=== PATIENT | male | born 1985 | race Caucasian/White ===

== ENCOUNTER 2017-06-17 17:02 | Emergency (ER) | payer BC ==
[2017-06-17 18:02] VITALS: RESP 18
--- NOTE | 2017-06-17 19:44 | C.PDOC ---
History Of Present Illness 31 year old male presents to the ER with a complaint of a left frontal headache that he describes as pain to the left orbital area since approximately 15:00 today, associated with photophobia. Patient reports taking aleve today with minimal relief. Denies nausea, fever, dizziness or URI symptoms. Time Seen by Provider: 06/17/17 19:16 Chief Complaint (Nursing): ENT Problem History Per: Patient History/Exam Limitations: no limitations Onset/Duration Of Symptoms: Hrs Current Symptoms Are (Timing): Still Present Preceeding Symptoms: None Associated Symptoms: Photophobia. denies: Blurred Vision, Nausea, Vomiting, Extremity Weakness Recent travel outside of the [place]: No Past Medical History Reviewed: Historical Data, Nursing Documentation, Vital Signs Vital Signs: Last Vital Signs Temp 97.6 F 06/17/17 19:48 Pulse 78 06/17/17 19:48 Resp 18 06/17/17 19:48 BP 117/65 06/17/17 19:48 Pulse Ox 100 06/17/17 21:36 - Medical History PMH: Hypothyroidism Family History: States: Unknown Family Hx - Social History Hx Alcohol Use: Yes Hx Substance Use: No - Immunization History Hx Tetanus Toxoid Vaccination: No Hx Influenza Vaccination: Yes (2017) Hx Pneumococcal Vaccination: No Review Of Systems Constitutional: Negative for: Fever, Chills Eyes: Positive for: Other (Photophobia). Negative for: Vision Change Gastrointestinal: Negative for: Nausea, Vomiting Neurological: Positive for: Headache Physical Exam - Physical Exam Appears: Non-toxic, No Acute Distress Skin: Normal Color, Warm, Dry Head: Atraumatic, Normacephalic, No Tenderness (Sinus), No Swelling Eye(s): bilateral: Normal Inspection, PERRL, EOMI Ear(s): Bilateral: Normal Oral Mucosa: Moist Neck: Normal, No Midline Cervical Tenderness, No Paracervical Tenderness, Supple Neurological/Psych: Oriented x3, Normal Speech, Other (No focal deficits) ED Course And Treatment O2 Sat by Pulse Oximetry: 100 (Room air) Pulse Ox Interpretation: Normal Progress Note: Tylenol administered. Patient reports improvement of pain, he is resting comofortably in no distress. Will discharge home with Rx, instructions to follow up with PMD, and given return precautions. Disposition Counseled Patient/Family Regarding: Diagnosis, Need For Followup, Rx Given - Disposition Referrals: Shaik Dickson MD [Staff Provider] - Disposition: HOME/ ROUTINE Disposition Time: 19:42 Condition: STABLE Additional Instructions: Please follow up with PMD Take meds as directed Return to ER if worse Prescriptions: Acetaminophen/Butalbital/Caf [Fioricet] 1 - 2 tab PO TID PRN #15 tab PRN Reason: Headache Metoclopramide [Reglan] 1 tab PO TID PRN #10 tab PRN Reason: Nausea/Vomiting Instructions: Migraine Headache (ED) Forms: [employer] (Slovenian), Work Excuse - Clinical Impression Clinical Impression: Headache - PA / OPEN CLAIMS REPRESENTATIVE / Resident Statement MD/DO has reviewed & agrees with the documentation as recorded. - Scribe Statement The provider has reviewed the documentation as recorded by the Scribe Tan Walker All medical record entries made by the Kandiceibyessy were at my direction and personally dictated by me. I have reviewed the chart and agree that the record accurately reflects my personal performance of the history, physical exam, medical decision making, and the department course for this patient. I have also personally directed, reviewed, and agree with the discharge instructions and disposition.
[2017-06-17 19:51] VITALS: BP 117/65; PULSE 78; TEMP 97.6
[2017-06-17 21:22] VITALS: O2SAT 100
== END 2017-06-17 20:01 | disposition home or self-care (01) ==
LOC: C.ER 17:02
DX: R51 Headache (principal); E03.9 Hypothyroidism, unspecified